=== PATIENT | female | born 1995 | race Caucasian/White ===

== ENCOUNTER → 2017-10-09 11:32 | Outpatient (CLI) | payer OTHER, SELFPAY ==
[2017-10-09 12:17] LABS: Add Manual Diff / Slide Review NO; Basophils Percent Auto 1.4 % (0-2); Eosinophils Percent Auto 2.2 % (2-4); Hematocrit 41.2 % (36-46); Hemoglobin 13.7 g/dL (12.0-16.0); Lymphocytes Percent Auto 31.4 % (25-40); Mean Corpuscular HGB Conc 33.2 % (30-36); Mean Corpuscular Hemoglobin 30.4 PG (26-34); Mean Corpuscular Volume 91.5 fL (80-100); Monocytes Percent Auto 6.7 % (3-14); Neutrophils Absolute Auto 3500 /uL (3000-5900); Neutrophils Percent Auto 58.3 % (50-75); Platelet Count 209 X10^3/uL (150-400); Red Cell Distribution Width 12.7 % (11.6-14.8)
[2017-10-09 12:57] LABS: BUN Creatinine Ratio 11.3 (6-22); Blood Urea Nitrogen 9 mg/dL (7-17); Calcium 9.8 mg/dL (8.4-10.2); Carbon Dioxide 30 mmol/L (22-32); Chloride 103 mmol/L (98-107); Estimated Glomerular Filt Rate > 60.0 mL/min (>60); Glucose 88 mg/dL (70-100); HEMOLYSIS < 15 (0-50); Potassium 4.4 mmol/L (3.4-5.1); Sodium 143 mmol/L (137-145)
[2017-10-09 13:26] LABS: Thyroid Stimulating Hormone 1.18 uIU/mL (0.47-4.68)
== END ==
PROVIDERS: Family Provider Internal Medicine; PCP Internal Medicine; Visit Provider Internal Medicine
DX: F50.2 Bulimia nervosa (principal); R53.83 Other fatigue
CPT/HCPCS: 36415; 80048; 84443; 85025

== ENCOUNTER 2019-03-07 13:11 | Emergency (ER) | payer OTHER, MEDICAID, SELFPAY ==
[2019-03-07 13:25] VITALS: BP 125/85; PULSE 85; RESP 16; TEMP 36.6; O2SAT 100
--- NOTE | 2019-03-07 13:28 | ED.NAVMDI ---
HPI - Nausea/Vomiting/Diarrhea General Chief complaint: Upper Respiratory Symptoms Stated complaint: feeling sick/started in [facility] t-7 Time Seen by Provider: 03/07/19 13:16 Source: patient Mode of arrival: Ambulatory Limitations: no limitations History of Present Illness HPI Narrative: This is a 23-year-old female comes to the emergency department with complaint of initially abdominal cramping and diarrhea that has been slowly decreasing in frequency although still happening sometimes 5 to 3 times a day. Patient states the abdominal cramping has stopped. Symptoms started about 6 days ago. Patient was in [facility] traveling and returned on , 3 days ago. She then flew to [place] through [place] and back for a prior engagement. On 1-2 days after her cramping and diarrhea started she noted she was having some nasal congestion, sore throat. Patient states the sore throat has resolved. She still has nasal congestion and a little bit of cough which has been dry. Patient did not have any objective fevers but did have chills and felt like she was maybe having a fever Saturday night. She has not had any shortness of breath. She has been nauseated but had no vomiting. No black or bloody stools. Patient states no past medical issues, she has had some cyst removed but no other prior surgeries. No allergies to medications other than antibiotics. No tobacco, occasional alcohol, no illicit. Related Data Previous Rx's Medication Instructions Recorded azithromycin 500 mg PO DAILY 3 Days tab 03/07/19 Allergies Allergy/AdvReac Type Severity Reaction Status Date / Time amoxicillin [AMOXICILLIN] Allergy Mild hives Verified 03/07/19 13:29 sulfamethoxazole Allergy Mild Verified 03/07/19 13:29 [From BACTRIM] trimethoprim [From BACTRIM] Allergy Mild Verified 03/07/19 13:29 Review of Systems Review of Systems ROS Unobtainable: All systems reviewed & are unremarkable except as noted in HPI and below Patient History Medical History Skin cysts, generalized (Resolved) Surgical History Anesthesia (Resolved) Surgical procedure planned (Resolved) Social History pets and animals: Yes education level: high school occupational status: student travel history: other leisure activities: other other: Dance, yoga, gym, hiking seatbelt use: always helmet use: Yes water heater temp set < 120 deg: Yes working smoke detector in home: Yes fire extinguisher in home: Yes carbon monox detector in home: Yes firearms in home: Yes firearms unloaded and locked: Yes Smoking Status: Never smoker substance use type: does not use during the past year weight has: decreased > 10 lbs well-balanced diet: about half the time daily servings fruits/ve-4 caffeine: Yes (1-3 caffeine drinks per week) eating out: 1-3 times/week Type(s) of exercise: other and yoga frequency: 5-6 times per week duration: 60-90 minutes/day Smoking Status: Never smoker alcohol intake frequency: a few times a month Substance Use Type: does not use Exam Narrative Exam Narrative: GEN: well nourished, well appearing yeah female, alert and oriented x 3, patient appears to be in mild distress. HEENT: Atraumatic, pupils are equal round reactive to light, extraocular movements are intact, mild rhinorrhea bilaterally, patient sounds congested with a nasally voice, TMs are clear with no fluid. Throat is clear without any exudates, erythema, tonsillar enlargement or uvular deviation, moist mucous membranes. HEART: Regular rate and rhythm without murmur, clicks, rubs. LUNGS:Lungs clear to auscultation, no wheezes, rales, crackles, chest moves symmetrically, no tachypnea, no accessory muscle use. ABD:bowel sounds normal, soft, non-tender, no guarding, rebound, rigidity, no masses noted, no hepatosplenomegaly :No CVA tenderness MSCL: Non-tender, full range of motion, normal gait NEURO:CN 2-12 intact, sensation normal. SKIN: Rash, no erythema, no petechiae. Initial Vital Signs Initial Vital Signs: Vital Signs Temperature 97.9 F 03/07/19 13:25 Pulse Rate 85 03/07/19 13:25 Respiratory Rate 16 03/07/19 13:25 Blood Pressure 125/85 03/07/19 13:25 Pulse Oximetry 100 03/07/19 13:25 Course Orders Ordered: ED Orders 03/07/19 13:22 Flu test [Influenza A & B (PCR)] Stat Vital Signs Vital signs: Vital Signs - 8 hr 03/07/19 13:25 03/07/19 14:27 Temperature 97.9 F Pulse Rate 85 81 Respiratory Rate 16 16 Blood Pressure 125/85 Blood Pressure [Right Arm] 117/81 Pulse Oximetry 100 100 MDM - Nausea/Vomiting/Diarrhea Lab Data Attestation: I reviewed the patient's lab results. Labs: Lab Results 03/07/19 Range/Units 13:22 Influenza A (RT-PCR) Flu a negative (NEGATIVE) Influenza B (RT-PCR) Flu b positive H (NEGATIVE) MDM Narrative Medical decision making narrative: Influenza swab shows Patient had recent travel to an outside country, she has had what sounds like traveler's diarrhea. She has been having some improvement with only 1 episode today we discussed holding antibiotics will give a prescription so she continues to have frequent diarrhea to go ahead and start them but we did discuss the risks is any antibiotic can alter the patient's got luis and cause further gastric issues. Patient feels comfortable with this plan. Patient's influenza was positive. She is at least 5 days into symptoms we discussed Tamiflu would not be helpful. She is comfortable with that. We discussed that the diarrhea might be secondary to influenza, could be from her travels. They plan to try some Imodium and if not helpful or they notice any worsening symptoms will go ahead and start antibiotics. Discharge Plan Departure Patient Disposition: Home Clinical Impression: Traveler's diarrhea, Influenza B Discharge Date/Time: 03/07/19 14:33 Instructions: Influenza Activity Restrictions/Additional Instructions: Follow up with primary care in the next week if your symptoms are not resolving. Take antibiotics if your diarrhea is not resolving. I would recommend trying a cup of probiotic yogurt daily as this may be helpful. You may also try loperamide or immodium over the counter for diarrhea symptoms. Follow directions on the bottle. Return to ER for fevers greater than 100.4F, new abdominal pain, black or bloody stools, increasing frequency of diarrhea, lightheadedness or passing out, persistent vomiting. New shortness of breath, chest pain other new or concerning symptoms. Prescriptions: New azithromycin 500 mg tablet 500 mg PO DAILY 3 Days RF: 0 Stand Alone Forms: Work Release Note, Work/School Release
[2019-03-07 14:00] LABS: Influenza A - CEPHEID Flu A NEGATIVE (NEGATIVE); Influenza B - CEPHEID Flu B POSITIVE (NEGATIVE)
--- NOTE | 2019-03-07 14:26 | PC.NURSE ---
Diarrhea since saturday.
[2019-03-07 14:27] VITALS: BP 117/81; PULSE 81; RESP 16; O2SAT 100
== END 2019-03-07 14:33 | disposition home or self-care (01) ==
PROVIDERS: Emergency Provider Emergency Medicine
DX: J10.1 Influenza due to other identified influenza virus with other respiratory manifestations (principal); R19.7 Diarrhea, unspecified
CPT/HCPCS: 87502; 99281; 99282